=== PATIENT | male | born 1960 | race Caucasian/White ===

== ENCOUNTER 2018-06-29 10:32 | Observation (INO) | payer OTHER ==
[~2018-06-29] VITALS: Ht 182.9 cm; Wt 85.3 kg
[2018-06-29 10:40] VITALS: BP 114/63
[2018-06-29] MEDS ORDERED: LORazepam 2 MG/ML VIAL IVP ONE (10:55)
[2018-06-29 11:09] LABS: BASOPHILS % (AUTO) 0.5 % (0.0-2.0); EOSINOPHILS # (AUTO) 0.1 K/uL (0-0.4); EOSINOPHILS % (AUTO) 2.1 % (0.0-4.0); HEMATOCRIT 22.4 % (36-52); HEMOGLOBIN 7.1 g/dL (12.0-18.0); LYMPHOCYTES % (AUTO) 17.9 % (20.5-51.1); MEAN CORPUSCULAR HEMOGLOBIN 30 pg (27-31); MEAN CORPUSCULAR HGB CONC 32 g/dL (33-37); MEAN CORPUSCULAR VOLUME 95.2 fL (80-94); MONOCYTES # (AUTO) 0.6 K/uL (0.8-1.0); MONOCYTES % (AUTO) 10.6 % (1.7-9.3); NEUTROPHILS # (AUTO) 3.9 K/uL (1.8-7.7); NEUTROPHILS % (AUTO) 68.9 % (42.2-75.2); PLATELET COUNT (AUTO) 368 K/uL (140-450); RED BLOOD CELL COUNT(AUTO) 2.35 MIL/uL (4.20-6.10); RED CELL DISTRIBUTION WIDTH 15.3 % (11.6-13.7); WHITE BLOOD COUNT (AUTO) 5.7 K/uL (4.8-10.8)
[2018-06-29 11:19] LABS: ACETONE, SERUM NEGATIVE (NEGATIVE); ANION GAP 13.7 (8-16); CHLORIDE 105 mmol/L (98-107); GFR ARICAN-AMERICAN 99 mL/min (>90); GLUCOSE 126 mg/dL (74-106); POTASSIUM 3.7 mmol/L (3.5-5.1); SODIUM SERUM 140 mmol/L (136-145); UREA NITROGEN, BLOOD 9 mg/dL (7-18)
[2018-06-29 11:21] LABS: PROTHROMBIN TIME 9.7 secs (10.8-13.4)
[2018-06-29 11:30] LABS: ALBUMIN 2.4 g/dL (3.4-5.0); ASPARTATE AMINOTRANSFERASE 15 U/L (15-37); MAGNESIUM 2.4 mg/dL (1.8-2.4); TOTAL BILIRUBIN 0.1 mg/dL (0.0-1.0)
[2018-06-29 12:01] LABS: APPEARANCE,URINE CLEAR (CLEAR); BILIRUBIN,URINE NEGATIVE (NEGATIVE); BLOOD, URINE NEGATIVE (NEGATIVE); COLOR,URINE YELLOW (YELLOW); LEUKOCYTE ESTERASE ,URINE NEGATIVE (NEGATIVE); NITRITE, URINE NEGATIVE (NEGATIVE); UGLUCOSE NEGATIVE (NEGATIVE)
[2018-06-29] MEDS ORDERED: ALBU117P IH (12:35)
[2018-06-29] MEDS ORDERED: IBUP-1842 PO (12:35)
[2018-06-29] MEDS ORDERED: QUET100T PO (12:35)
[2018-06-29] MEDS ORDERED: TOF25 PO (12:35)
[2018-06-29] MEDS ORDERED: DOCU100C16 PO (12:35)
[2018-06-29] MEDS ORDERED: FLOV250 INH (12:35)
[2018-06-29] MEDS ORDERED: MULT-160 PO (12:35)
[2018-06-29] MEDS ORDERED: LACO100T PO (12:35)
[2018-06-29] MEDS ORDERED: ESOM40EC PO (12:35)
[2018-06-29] MEDS ORDERED: DM/P118S7 PO (12:35)
[2018-06-29] MEDS ORDERED: ACET-2619 PO (12:35)
[2018-06-29] MEDS ORDERED: ASPI81CT89 PO (12:35)
[2018-06-29] MEDS ORDERED: LAM200 PO (12:35)
[2018-06-29] MEDS ORDERED: RISP0.5T3 PO (12:35)
[2018-06-29] MEDS ORDERED: SIMV20TA1 PO (12:35)
[2018-06-29] MEDS ORDERED: ALBUTEROL 0.083% 2.5 MG/3 ML NEBU IH PRN (13:50)
[2018-06-29] MEDS ORDERED: ONDANSETRON 4 MG/2 ML VIAL IVP PRN (13:50)
[2018-06-29] MEDS ORDERED: ALBUTEROL SULFATE IH SCH (13:50)
[2018-06-29] MEDS ORDERED: PROMETHAZINE PO PRN (13:50)
[2018-06-29] MEDS ORDERED: HYDROcodone/APAP 5/325 MG 1 TAB TAB PO PRN ×2 (13:50)
[2018-06-29] MEDS ORDERED: ACETAMINOPHEN 325 MG TAB PO SCH (13:50)
[2018-06-29] MEDS ORDERED: DEXTROMETHORPHAN PO PRN (13:50)
[2018-06-29] MEDS ORDERED: ACETAMINOPHEN 325 MG TAB PO PRN (13:50)
[2018-06-29 16:19] VITALS: BP 122/59
[2018-06-29] MEDS: DEXT 5% /NACL 0.9% 1,000 ML IV SCH ×2 (17:49→23:50)
[2018-06-29] MEDS: SENNA 8.6 MG TAB PO SCH (17:49)
[2018-06-29 18:09] LABS: EOSINOPHILS # (AUTO) 0.1 K/uL (0-0.4); MONOCYTES # (AUTO) 0.6 K/uL (0.8-1.0)
[2018-06-29 18:15] LABS: BASOPHILS % (AUTO) 0.5 % (0.0-2.0); EOSINOPHILS % (AUTO) 2.4 % (0.0-4.0); HEMATOCRIT 21.7 % (36-52); LYMPHOCYTES # (AUTO) 0.9 K/uL (2.0-11.5); LYMPHOCYTES % (AUTO) 16.2 % (20.5-51.1); MEAN CORPUSCULAR HEMOGLOBIN 30 pg (27-31); MEAN CORPUSCULAR HGB CONC 31 g/dL (33-37); MEAN CORPUSCULAR VOLUME 95.6 fL (80-94); MONOCYTES % (AUTO) 9.6 % (1.7-9.3); NEUTROPHILS # (AUTO) 4.1 K/uL (1.8-7.7); NEUTROPHILS % (AUTO) 71.3 % (42.2-75.2); PLATELET COUNT (AUTO) 379 K/uL (140-450); RED BLOOD CELL COUNT(AUTO) 2.27 MIL/uL (4.20-6.10); RED CELL DISTRIBUTION WIDTH 15.4 % (11.6-13.7); WHITE BLOOD COUNT (AUTO) 5.8 K/uL (4.8-10.8)
[2018-06-29 18:19] LABS: HEMOGLOBIN 6.8 g/dL (12.0-18.0)
[2018-06-29] MEDS: BUDESONIDE 0.5 MG/2 ML NEBU INH SCH (18:37)
[2018-06-29 20:50] VITALS: BP 126/68
[2018-06-29] MEDS: QUEtiapine FUMARATE 100 MG TAB PO SCH (20:57)
[2018-06-29] MEDS: VIMPAT 100MG TAB PO SCH (20:59)
[2018-06-29] MEDS ORDERED: NON-FORMULARY ITEM (Lacosamide (Vimpat) 100 MG) PO SCH (21:00)
[2018-06-29] MEDS ORDERED: IMIPRAMINE 25 MG PO SCH (21:00)
[2018-06-29] MEDS ORDERED: IMIPRAMINE 25 MG TAB PO SCH (21:00)
[2018-06-29] MEDS ORDERED: SIMVASTATIN 20 MG TAB PO SCH (21:00)
[2018-06-29] MEDS ORDERED: risperiDONE 1 MG TAB PO SCH (21:00)
[2018-06-29] MEDS ORDERED: FLUTICASONE PROPIONATE 220 MCG INH SCH (21:00)
[2018-06-30 04:00] VITALS: BP 127/57
[2018-06-30 04:30] VITALS: BP 127/66
[2018-06-30 08:00] VITALS: BP 115/71
[2018-06-30] MEDS: BUDESONIDE 0.5 MG/2 ML NEBU INH SCH (08:01)
[2018-06-30] MEDS ORDERED: ASPIRIN 81 MG TAB.CHEW PO SCH (09:00)
[2018-06-30] MEDS ORDERED: PANTOPRAZOLE 40 MG TABEC PO SCH (09:00)
[2018-06-30] MEDS ORDERED: NON-FORMULARY ITEM (Esomeprazole Magnesium* (Nexium*) 40 MG) PO SCH (09:00)
[2018-06-30] MEDS ORDERED: MULTIVITAMIN 1 TAB PO SCH (09:00)
[2018-06-30] MEDS ORDERED: MULTIVITAMIN THERAPEUTIC PO SCH (09:00)
[2018-06-30] MEDS ORDERED: DOCUSATE SODIUM 100 MG GELCAP PO SCH (09:00)
[2018-06-30] MEDS ORDERED: DOCUSATE SODIUM 100 MG PO SCH (09:00)
[2018-06-30] MEDS: VIMPAT 100MG TAB PO SCH (09:22)
[2018-06-30] MEDS: QUEtiapine FUMARATE 100 MG TAB PO SCH (09:22)
[2018-06-30] MEDS: SENNA 8.6 MG TAB PO SCH ×2 (09:23→12:26)
[2018-06-30 09:44] LABS: BASOPHILS % (AUTO) 0.7 % (0.0-2.0); EOSINOPHILS # (AUTO) 0.1 K/uL (0-0.4); EOSINOPHILS % (AUTO) 2.8 % (0.0-4.0); HEMATOCRIT 30.2 % (36-52); HEMOGLOBIN 9.6 g/dL (12.0-18.0); LYMPHOCYTES # (AUTO) 0.7 K/uL (2.0-11.5); LYMPHOCYTES % (AUTO) 15.3 % (20.5-51.1); MEAN CORPUSCULAR HEMOGLOBIN 30 pg (27-31); MEAN CORPUSCULAR HGB CONC 32 g/dL (33-37); MONOCYTES # (AUTO) 0.5 K/uL (0.8-1.0); MONOCYTES % (AUTO) 10.5 % (1.7-9.3); NEUTROPHILS # (AUTO) 3.5 K/uL (1.8-7.7); NEUTROPHILS % (AUTO) 70.7 % (42.2-75.2); PLATELET COUNT (AUTO) 366 K/uL (140-450); RED BLOOD CELL COUNT(AUTO) 3.24 MIL/uL (4.20-6.10); RED CELL DISTRIBUTION WIDTH 15.4 % (11.6-13.7); WHITE BLOOD COUNT (AUTO) 4.9 K/uL (4.8-10.8)
[2018-06-30] MEDS: DEXT 5% /NACL 0.9% 1,000 ML IV SCH (09:50)
[2018-06-30] MEDS ORDERED: SENN-74 PO (10:15)
[2018-06-30 10:22] LABS: ANION GAP 10.3 (8-16); CARBON DIOXIDE 28.5 mmol/L (21-32); CREATININE 0.9 mg/dL (0.7-1.3); POTASSIUM 3.8 mmol/L (3.5-5.1); TOTAL BILIRUBIN 0.4 mg/dL (0.0-1.0)
[2018-06-30 10:49] LABS: ALBUMIN 2.2 g/dL (3.4-5.0)
[2018-07-04 12:32] LABS: FOLIC ACID > 20.00 ng/mL (>3.0)
[2018-07-06 06:55] LABS: FERRITIN 21 ng/mL (30-400)
== END 2018-06-30 15:10 | disposition home or self-care (01) ==
LOC: MED 10:32 → MTU 13:46
PROVIDERS: ADMIT Hospitalist; ATTEND Hospitalist
DX: D64.9 Anemia, unspecified (principal); F20.9 Schizophrenia, unspecified; F79 Unspecified intellectual disabilities; G40.909 Epilepsy, unspecified, not intractable, without status epilepticus; J44.9 Chronic obstructive pulmonary disease, unspecified; E78.5 Hyperlipidemia, unspecified
CPT/HCPCS: 36415; 70450; 71045; 80053; 81003; 82009; 82140; 82550; 82607; 82728; 82746; 83540; 83605; 83735; 84484; 85025; 85045; 85610; 86886; 86900; 86901; 86920; 87081; 93005; 94640; 94760; 96374; 99285; C1758; G0378; G0482; J2060; J7030; J7042; J7626; P9016

== ENCOUNTER 2018-09-24 18:04 | Observation (INO) | payer OTHER ==
[~2018-09-24] VITALS: Ht 172.7 cm; Wt 72.6 kg
[~2018-09-24 18:04] MED LIST: ACET-2619 PO; ALBU117P IH; ASPI-1718 PO; DOCU100C16 PO; ESOM40EC PO; FLOV250 INH; LACO100T PO; LAM200 PO; MULT-160 PO; PROM118S4 PO; QUET100T PO; RISP0.5T3 PO; SENN-74 PO; SIMV20TA1 PO; TOF25 PO
[2018-09-24 18:07] VITALS: BP 139/84
--- NOTE | 2018-09-24 18:07 | NUR ---
Pt placed in bed 3 by EMS. Triage at bedside.
--- NOTE | 2018-09-24 18:10 | NUR ---
Pt reginald from [facility] with complaints of chest pain for the past 6 hours. Pt took aspirin 324 BUS AIDE and received x2 nitro from EMS BUS AIDE. Pt c/o right sided chest pain, 9/10, non provoked, pressure like pain. GCS 15. AOX4. Pt denies any SOB. NAD noted, VSS.
[2018-09-24] MEDS ORDERED: NACL 0.9% 1,000 ML IV SCH (18:29)
[2018-09-24] MEDS ORDERED: MAG SULF 2000 MG/WATER PREMIX 50 ML IV ONE (18:30)
[2018-09-24] MEDS ORDERED: PIPERACILLIN/TAZOBACTAM 3.375 GM in DEXT 5% MINI-BAG PLUS 50 ML IV ONE (18:30)
[2018-09-24] MEDS ORDERED: methylPREDNISolone SS 125 MG/2 ML VIAL IVP ONE (18:30)
[2018-09-24] MEDS ORDERED: LEVOFLOXACIN 500 MG TAB PO ONE (18:40)
--- NOTE | 2018-09-24 19:00 | NUR ---
ASSUMED CARE OF PT FROM CAM MARTINEZ
[2018-09-24] MEDS ORDERED: PIPERACILLIN/TAZOBACTAM 3.375 GM VIAL IV ONE (19:07)
[2018-09-24 19:18] LABS: BASOPHILS % (AUTO) 0.2 % (0.0-2.0); EOSINOPHILS # (AUTO) 0.1 K/uL (0-0.4); EOSINOPHILS % (AUTO) 1.3 % (0.0-4.0); HEMOGLOBIN 10.2 g/dL (12.0-18.0); LYMPHOCYTES % (AUTO) 14.3 % (20.5-51.1); MEAN CORPUSCULAR HEMOGLOBIN 26 pg (27-31); MEAN CORPUSCULAR HGB CONC 32 g/dL (33-37); MEAN CORPUSCULAR VOLUME 80.4 fL (80-94); MONOCYTES # (AUTO) 0.7 K/uL (0.8-1.0); MONOCYTES % (AUTO) 9.9 % (1.7-9.3); NEUTROPHILS % (AUTO) 74.3 % (42.2-75.2); PLATELET COUNT (AUTO) 209 K/uL (140-450); RED BLOOD CELL COUNT(AUTO) 3.97 MIL/uL (4.20-6.10); RED CELL DISTRIBUTION WIDTH 17.7 % (11.6-13.7); WHITE BLOOD COUNT (AUTO) 6.7 K/uL (4.8-10.8)
[2018-09-24 19:35] LABS: PROTHROMBIN TIME 9.7 secs (10.8-13.4)
[2018-09-24 19:36] LABS: ALBUMIN 3.8 g/dL (3.4-5.0); ANION GAP 11.9 (8-16); CARBON DIOXIDE 29.3 mmol/L (21-32); CREATININE 1.3 mg/dL (0.7-1.3); POTASSIUM 4.2 mmol/L (3.5-5.1); TOTAL BILIRUBIN 0.3 mg/dL (0.0-1.0)
[2018-09-24 20:23] LABS: CREATINE KINASE MB 0.3 ng/mL (0-3.6)
--- NOTE | 2018-09-24 21:00 | NUR ---
NO REACTIONS TO MEDICATIONS GIVEN. PT AND CAREGIVER UPDATED ON ADMISSION STATUS. ALL QUESTIONS ANSWERED.
[2018-09-24] MEDS ORDERED: ACETAMINOPHEN 325 MG TAB PO PRN (21:20)
[2018-09-24] MEDS ORDERED: ONDANSETRON 4 MG/2 ML VIAL IVP PRN (21:20)
[2018-09-24] MEDS ORDERED: ALBUTEROL 0.083% 2.5 MG/3 ML NEBU INH PRN (21:20)
[2018-09-24 21:48] LABS: APPEARANCE,URINE CLEAR (CLEAR); BILIRUBIN,URINE NEGATIVE (NEGATIVE); BLOOD, URINE NEGATIVE (NEGATIVE); COLOR,URINE YELLOW (YELLOW); LEUKOCYTE ESTERASE ,URINE NEGATIVE (NEGATIVE); NITRITE, URINE NEGATIVE (NEGATIVE); UGLUCOSE NEGATIVE (NEGATIVE)
--- NOTE | 2018-09-24 21:53 | NUR ---
Patient will be admitted to care of DR CENTENO. Admited to TELE. Will go to room 123-B. Belongings list completed. Report to CAM BARAJAS.
[2018-09-24 21:55] VITALS: BP 135/79
--- NOTE | 2018-09-24 21:55 | NUR ---
PT ARRIVED VIA GURNEY AND AMBULATED TO BED. RECEIVED REPORT FROM ER NURSE AT BEDSIDE. PT RESTING IN BED, AOX1-MILD INTELLECTUAL DISABILITY, WITH RIGHT AC #20G RUNNING NS AT WIDE OPEN. CAREGIVER JC AT BEDSIDE. DISCUSSED PLAN OF CARE AND CAREGIVER VERBALIZED UNDERSTANDING. VITAL SIGNS TAKEN AND TOLERATE DWELL. MRSA NARES SWAB COLLECTED. NO S/S OF RESPIRATORY DISTRESS OR DISCOMFORT NOTED AT THIS TIME. ORIENTED PT TO BEDROOM, CALL LIGHT, AND BATHROOM. BEDSIDE TABLE AND CALL LIGHT ARE WITHIN REACH. WILL CONTINUE TO MONITOR.
[2018-09-25] VITALS: BP 131/77
--- NOTE | 2018-09-25 | NUR ---
VITAL SIGNS TAKEN AND TOLERATED WELL. NO S/S OF RESPIRATORY DISTRESS OR DISCOMFORT NOTED AT THIS TIME. WILL CONTINUE TO MONITOR.
[2018-09-25] MEDS: IPRATROPIUM 0.02% 0.5 MG/2.5 ML NEBU INH SCH ×3 (00:36→13:16)
[2018-09-25] MEDS: ALBUTEROL 0.083% 2.5 MG/3 ML NEBU INH SCH ×3 (00:37→13:17)
--- NOTE | 2018-09-25 02:00 | NUR ---
PT RESTING IN BED WATCHING TV. NO S/S OF RESPIRATORY DISTRESS OR DISCOMFORT NOTED AT THIS TIME. WILL CONTINUE TO MONITOR.
[2018-09-25 02:40] LABS: BASOPHILS % (AUTO) 0.2 % (0.0-2.0); HEMATOCRIT 33.7 % (36-52); HEMOGLOBIN 10.8 g/dL (12.0-18.0); LYMPHOCYTES # (AUTO) 0.2 K/uL (2.0-11.5); LYMPHOCYTES % (AUTO) 3.4 % (20.5-51.1); MEAN CORPUSCULAR HEMOGLOBIN 26 pg (27-31); MEAN CORPUSCULAR HGB CONC 32 g/dL (33-37); MEAN CORPUSCULAR VOLUME 80.8 fL (80-94); MONOCYTES # (AUTO) 0.1 K/uL (0.8-1.0); MONOCYTES % (AUTO) 0.9 % (1.7-9.3); NEUTROPHILS # (AUTO) 5.6 K/uL (1.8-7.7); NEUTROPHILS % (AUTO) 95.5 % (42.2-75.2); PLATELET COUNT (AUTO) 203 K/uL (140-450); RED BLOOD CELL COUNT(AUTO) 4.17 MIL/uL (4.20-6.10); RED CELL DISTRIBUTION WIDTH 17.5 % (11.6-13.7); WHITE BLOOD COUNT (AUTO) 5.9 K/uL (4.8-10.8)
[2018-09-25 02:51] LABS: ANION GAP 14.4 (8-16); CARBON DIOXIDE 28.2 mmol/L (21-32); CREATININE 1.3 mg/dL (0.7-1.3); POTASSIUM 4.6 mmol/L (3.5-5.1)
[2018-09-25 03:05] LABS: CREATINE KINASE MB 0.5 ng/mL (0-3.6)
[2018-09-25 04:00] VITALS: BP 130/71
--- NOTE | 2018-09-25 04:00 | NUR ---
VITAL SIGNS TAKEN AND TOLERATED WELL. NO S/S OF RESPIRATORY DISTRESS OR DISCOMFORT NOTED AT THIS TIME. WILL CONTINUE TO MONITOR.
[2018-09-25] MEDS ORDERED: methylPREDNISolone SS 40 MG in WATER STERILE 1 ML IV SCH (05:00)
[2018-09-25] MEDS ORDERED: methylPREDNISolone SS 40 MG/ML VIAL ONE (05:08)
[2018-09-25] MEDS ORDERED: PANTOPRAZOLE 40 MG TABEC PO ONE (05:09)
[2018-09-25] MEDS: methylPREDNISolone SS 40 MG/ML VIAL IVP SCH ×2 (05:09→14:20)
--- NOTE | 2018-09-25 05:09 | NUR ---
SCHEDULED MEDICATION SOLU-MEDROL GIVEN AND TOLERATED WELL. NO S/S OF RESPIRATORY DISTRESS OR DISCOMFORT NOTED AT THIS TIME. WILL CONTINUE TO MONITOR.
--- NOTE | 2018-09-25 06:30 | NUR ---
SCHEDULED MEDICATION PROTONIX GIVEN AND TOLERATED WELL. NO S/S OF RESPIRATORY DISTRESS OR DISCOMFORT NOTED AT THIS TIME. WILL CONTINUE TO MONITOR.
[2018-09-25] MEDS ORDERED: PANTOPRAZOLE 40 MG TABEC PO SCH (07:30)
--- NOTE | 2018-09-25 07:44 | NUR ---
ENDORSED PT CARE TO DAY SHIFT NURSE SITAL-RN FOR CONTINUITY OF CARE.
--- NOTE | 2018-09-25 07:45 | NUR ---
RECEIVED REPORT FORM PM NURSE AT BEDSIDE. PT SITING IN HIS BED COMFORTABLY. NO DISTRESS NOTED. WAS AWAKE AND ABLE TO COMMUNICATE. PT HAS HX OF DEMENTIA, AOX2. HAS RT FA 20 G, IVF NS INFUSING WIDE OPEN. SKIN IS INTACT . UPDATED BOARD AND INTRODUCED. VS NORMAL AT THIS TIME. PT IS FALL RISK. BED ALARM ON. CALL LIGHT WITHIN PT REACH. PT SI ON SEIZURE PRECAUTION WELL. SIDE RAILS PADDED. INFORMED PT TO USE CALL LIGHT FOR ANY HELP. VERBALIZED UNDERSTANDING. WILL CONTINUE TO MONITOR PT.
[2018-09-25 07:59] VITALS: BP 135/81
--- NOTE | 2018-09-25 08:50 | NUR ---
PATIENT HAS BEEN SCREENED AND CATEGORIZED MODERATE NUTRITION RISK. PATIENT WILL BE SEEN WITHIN 3-5 DAYS OF ADMISSION. 09/27/18[address]
[2018-09-25] MEDS ORDERED: ASPIRIN 81 MG TAB.CHEW PO SCH (09:00)
[2018-09-25] MEDS ORDERED: ENOXAPARIN 40 MG/0.4 ML SYR SUBQ SCH (09:00)
[2018-09-25] MEDS ORDERED: SENNA 8.6 MG TAB PO SCH (09:00)
[2018-09-25] MEDS ORDERED: QUEtiapine FUMARATE 100 MG TAB PO SCH (09:00)
[2018-09-25] MEDS ORDERED: DOCUSATE SODIUM 100 MG GELCAP PO SCH (09:00)
--- NOTE | 2018-09-25 09:51 | NUR ---
PT MEDS NOT LINKED WITH [employer] MACHINE. PHAMACY AWARE. STATES IT ISSUE . TO CALL BACK IN 10 MINUTES.
[2018-09-25] MEDS ORDERED: PRED20TA5 PO (10:08)
--- NOTE | 2018-09-25 10:16 | NUR ---
ADMINISTERED MEDS TO PT ORDERED. TOLERATED WELL. ALL SAFETY MEASURE IN PLACE. PLACE BED SIDE TABLE NEAR TO PT. WILL CONTINUE TO MONITOR PT.
[2018-09-25 12:00] VITALS: BP 130/82
--- NOTE | 2018-09-25 14:00 | NUR ---
CHECKED ON PT. LYING ON HIS BED. PT WAITING FOR THE PICK FROM BOARD AND CARE. STABLE AT THIS TIME. NO DISTRESS NOTED. WILL CONTINUE TO MONITOR PT.
--- NOTE | 2018-09-25 14:24 | NUR ---
ADMINISTERED MEDS TO PT ORDERED. PT AWAKE AND ALERT. NO DISTRESS NOTED. CALL LIGHT WITHIN REACH. WILL CONTINUE TO MONITOR PT.
--- NOTE | 2018-09-25 18:10 | NUR ---
PT WENT HOME WITH THE MEMBER FROM BOARD AND CARE. PT STALE. PROVIDED DISCHARGE PACKET AND PRESCRIPTION PROVIDED . PT WALKED OUT OF THE HOSPITAL BY HIMSELF.
[2018-09-25] MEDS ORDERED: SIMVASTATIN 20 MG TAB PO SCH (21:00)
[2018-09-25] MEDS ORDERED: IMIPRAMINE 25 MG TAB PO SCH (21:00)
[2018-09-25] MEDS ORDERED: risperiDONE 1 MG TAB PO SCH (21:00)
[2018-09-25] MEDS ORDERED: LEVOFLOXACIN 500 MG/D5W PREMIX 100 ML IV SCH (21:00)
== END 2018-09-25 18:10 ==
LOC: MED 18:04 → UNDOADMIN 21:26 → MTU 21:26
PROVIDERS: ADMIT Internal Medicine; ATTEND Internal Medicine
DX: R07.2 Precordial pain (principal); J45.909 Unspecified asthma, uncomplicated; J44.9 Chronic obstructive pulmonary disease, unspecified; E78.5 Hyperlipidemia, unspecified; F20.9 Schizophrenia, unspecified; G40.909 Epilepsy, unspecified, not intractable, without status epilepticus; F79 Unspecified intellectual disabilities
CPT/HCPCS: 36415; 71045; 80048; 80053; 81003; 82550; 82553; 83605; 83880; 84484; 85025; 85379; 85384; 85610; 85730; 87040; 87081; 87086; 93005; 94640; 94760; 96365; 96366; 96367; 96372; 96375; 96376; 99285; G0378; J1650; J2543; J2920; J2930; J3475; J7613; J7644; Q0092

== ENCOUNTER 2018-12-26 07:09 | Emergency (ER) | payer OTHER ==
[~2018-12-26] VITALS: Ht 172.7 cm; Wt 75.4 kg
[~2018-12-26 07:09] MED LIST changes: +PRED20TA5 PO
--- NOTE | 2018-12-26 07:33 | NUR ---
PT AMBULATED WITH ASSISTANCE TO ER BED 06
[2018-12-26 07:42] VITALS: BP 122/70
--- NOTE | 2018-12-26 07:44 | NUR ---
XRAY AT BEDSIDE
--- NOTE | 2018-12-26 07:55 | NUR ---
PT BIB SENIOR QUALITY ASSURANCE ENGINEER TO THE ED WITH THE CHIEF C/O CONSTIPATION FOR 4 DAYS. NO ANY N/V/D PER CARE PROVIDER. PT DENIES ANY ABDOMINAL PAIN. ABDOMEN SOFT, ROUND AND NON-TENDER. ACTIVE BOWEL SOUND. PT HAS GOOD APPETITE PER CARE PROVIDER. PT NON-AMBULATORY. NO ANY RECENT FEVER. DENIES ANY OTHER PROBLEM AT THIS TIME. WILL CONTINUE TO MONITOR.
--- NOTE | 2018-12-26 07:56 | NUR ---
PT EVALUATED BY DOYLE WOLFE.
[2018-12-26] MEDS ORDERED: QUET300T1 PO (08:01)
[2018-12-26] MEDS ORDERED: BECL10.62 IH (08:01)
[2018-12-26] MEDS ORDERED: RISP0.251 PO (08:01)
[2018-12-26] MEDS ORDERED: NAPR-54 PO (08:01)
[2018-12-26] MEDS ORDERED: QUET200T PO (08:01)
[2018-12-26] MEDS ORDERED: KEP500 PO (08:01)
[2018-12-26] MEDS ORDERED: ALBU0.0912 IH (08:01)
[2018-12-26] MEDS ORDERED: IBUP-1842 PO (08:01)
[2018-12-26 08:49] VITALS: BP 121/71
--- NOTE | 2018-12-26 08:50 | NUR ---
Patient discharged with v/s stable. Written and verbal after care instructions given and explained. Patient alert, oriented and verbalized understanding of instructions. Wheel Chair Assisted with by caregiver. All questions addressed prior to discharge. ID band removed. Patient advised to follow up with PMD. Rx of MIRALAX,MAGNESIUM,CITRATE given. Patient educated on indication of medication including possible reaction and side effects. Opportunity to ask questions provided and answered.
== END 2018-12-26 08:50 | disposition home or self-care (01) ==
LOC: MED 07:09
DX: K59.00 Constipation, unspecified (principal); J44.9 Chronic obstructive pulmonary disease, unspecified; F03.90 Unspecified dementia, unspecified severity, without behavioral disturbance, psychotic disturbance, mood disturbance, and anxiety; G40.909 Epilepsy, unspecified, not intractable, without status epilepticus; Z79.899 Other long term (current) drug therapy
CPT/HCPCS: 74018; 99283; Q0092

== ENCOUNTER 2019-02-15 07:52 | Emergency (ER) | payer OTHER ==
[~2019-02-15] VITALS: Ht 172.7 cm; Wt 76.7 kg
[~2019-02-15 07:52] MED LIST changes: +ALBU0.0912 IH; -ALBU117P IH; -ASPI-1718 PO; +BECL10.62 IH; -FLOV250 INH; +IBUP-1842 PO; +KEP500 PO; -LACO100T PO; +NAPR-54 PO; -PRED20TA5 PO; -QUET100T PO; +QUET200T PO; +QUET300T1 PO; +RISP0.251 PO
[2019-02-15 08:01] VITALS: BP 103/69
--- NOTE | 2019-02-15 08:08 | NUR ---
Patient ambulated to bed 3
--- NOTE | 2019-02-15 08:20 | NUR ---
PT BIB CAREGIVER WITH C/O CONSTIPATION X3 DAYS; LBM 02/12/19. CAREGIVER DENIES NAUSEA OR VOMITING EPISODES. FLATULENCE IS PRESENT. PT DENIES ABDOMINAL PAIN. ABD SOFT, NONTENDER, NONDISTENDED WITH BOWEL SOUNDS PRESENT IN ALL 4 QUADRANTS. HX:MILD INTELLECTUAL DISABILITY, EPILEPSY (LAST SZ X1 YEAR AGO) RX: DOCUSATE, QUETIAPINE, RIPERIDONE, LAMOTRIGINE
--- NOTE | 2019-02-15 08:55 | NUR ---
PT TO XRAY VIA WHEELCHAIR
[2019-02-15 09:36] VITALS: BP 103/69
--- NOTE | 2019-02-15 09:37 | NUR ---
Patient discharged with v/s stable. Written and verbal after care instructions given and explained. Patient alert, oriented and verbalized understanding of instructions. Ambulatory with walker assistance. All questions addressed prior to discharge. ID band removed. Patient advised to follow up with PMD. Rx of miralax and mag citrate michelle. given. Patient educated on indication of medication including possible reaction and side effects. Opportunity to ask questions provided and answered.
== END 2019-02-15 09:37 | disposition home or self-care (01) ==
LOC: MED 07:52
DX: K59.00 Constipation, unspecified (principal); J44.9 Chronic obstructive pulmonary disease, unspecified; F03.90 Unspecified dementia, unspecified severity, without behavioral disturbance, psychotic disturbance, mood disturbance, and anxiety; Z79.899 Other long term (current) drug therapy
CPT/HCPCS: 74018; 99283; Q0092

== ENCOUNTER 2019-12-25 23:22 | Emergency (ER) | payer OTHER, SELFPAY ==
[~2019-12-25] VITALS: Ht 172.7 cm; Wt 77.1 kg
--- NOTE | 2019-12-25 23:30 | NUR ---
PT BROUGHT FROM FACILITY BY CAREGIVER AND PLACED IN BED 12 FROM W/C WITH ASSITANCE
[2019-12-25 23:31] VITALS: BP 94/60
--- NOTE | 2019-12-25 23:31 | NUR ---
Note undone in EDM - 12/26/19 at 0027 by [facility] FELL AND HIT HEAD 15 MINS AGO; 5CM HEAD LACERATION; NOT ACTIVELY BLEEDING. A&O X4. STEADY GAIT. UPPER EXTREM HAVE EQUAL STRENGTH BILAT. DENIES ANY N,V,CONTRERAS,BLURRY VISION, OR FEVER. NO OBVIOUS DEFORMITY NOTED. VSS. CAREGIVER AT BEDSIDE. 2MM LYLA MUKHERJEE. PMH: EPILEPSY/COPD/HIGH CHOLESTEROL/HTN/COGNITIVE DISABILITY. NKA.
--- NOTE | 2019-12-25 23:31 | NUR ---
FELL AND HIT HEAD 15 MINS AGO; 5CM HEAD LACERATION; NOT ACTIVELY BLEEDING. A&O X4. BROUGHT IN ON W/C. UPPER EXTREM HAVE EQUAL STRENGTH BILAT. DENIES ANY N,V,CONTRERAS,BLURRY VISION, OR FEVER. NO OBVIOUS DEFORMITY NOTED. VSS. CAREGIVER AT BEDSIDE. 2MM PERRLA BRISK. PMH: EPILEPSY/COPD/HIGH CHOLESTEROL/HTN/COGNITIVE DISABILITY. NKA.
[2019-12-25] MEDS ORDERED: LIDOCAINE 2% 1000 MG/50 ML VIAL INJ ONE (23:50)
--- NOTE | 2019-12-26 00:03 | NUR ---
ERMD AT BEDSIDE FOR BEDSIDE PROCEDURE.
--- NOTE | 2019-12-26 00:04 | NUR ---
Charla trujillo in [facility] - 12/26/19 at [address] Paul examining patient.
--- NOTE | 2019-12-26 00:26 | NUR ---
COVID SWAB COLLECTED AND SENT TO LAB.
[2019-12-26 00:28] VITALS: BP 94/60
--- NOTE | 2019-12-26 00:29 | NUR ---
Patient discharged with v/s stable. Written and verbal after care instructions given and explained. Patient verbalized understanding. Wheel Chair Assisted with by caregiver brina from [facility]. All questions addressed prior to discharge. Advised to follow up with PMD.
== END 2019-12-26 00:29 | disposition home or self-care (01) ==
LOC: EEVIPCON 23:22 → MED 23:22
DX: S01.01XA Laceration without foreign body of scalp, initial encounter (principal); F03.90 Unspecified dementia, unspecified severity, without behavioral disturbance, psychotic disturbance, mood disturbance, and anxiety; J44.9 Chronic obstructive pulmonary disease, unspecified; J45.909 Unspecified asthma, uncomplicated; R56.9 Unspecified convulsions; Z79.899 Other long term (current) drug therapy; Z20.828 Contact with and (suspected) exposure to other viral communicable diseases; W19.XXXA Unspecified fall, initial encounter; Y93.89 Activity, other specified; Y92.89 Other specified places as the place of occurrence of the external cause; Y99.8 Other external cause status
CPT/HCPCS: 12004; 99283; J2001; U0003; 99282